=== PATIENT | female | born 1955 | race Caucasian/White ===

== ENCOUNTER → 2017-06-19 | Outpatient (CLI) | payer OTHER ==
[2017-06-19 14:24] LABS: Appearance,Urine Clear (Clear); Bilirubin,Urine Negative (Negative); Glucose,Urine (UA) Negative (Negative); Ketones,Urine Negative (Negative); Leukocyte Esterase,Urine Moderate (Negative); Nitrite,Urine Negative (Negative); Particle Count 558; Protein,Urine Negative (Negative); Specific Gravity,Urine 1.006 (1.001-1.035); Squamous Epithelial Cell,Urine 1 /hpf (0-4); UA Billing (MACRO vs. MICRO) MICRO; Urobilinogen,Urine <2.0 mg/dL (<2.0); WBC,Urine 2 /hpf (0-5)
[2017-06-19 14:26] LABS: CH 31.2; CHCM 34.4; HCT 40.8 % (34.0-46.0); HDW 2.53; HGB 13.4 gm/dL (11.4-16.0); MCH 29.9 pg (25.0-35.0); MCHC 32.9 g/dL (31.0-37.0); MCV 91.1 fL (80.0-100.0); Mean Platelet Volume 6.8; RBC 4.48 m/uL (3.80-5.40); RDW 14.1 % (11.5-15.5); WBC 7.2 k/uL (3.8-10.6)
[2017-06-19 14:28] LABS: Partial Thromboplastin Time 23.1 sec (22.0-30.0); Prothrombin Time 9.9 sec (9.0-12.0)
[2017-06-19 14:39] LABS: Calcium 9.5 mg/dL (8.4-10.2); Potassium 4.2 mmol/L (3.5-5.1); Total Bilirubin 0.5 mg/dL (0.2-1.3); Total Protein 7.4 g/dL (6.3-8.2)
== END | disposition home or self-care (01) ==
LOC: LABWHC1 13:28
PROVIDERS: ATTEND Orthopaedic Surgery
DX: Z01.812 Encounter for preprocedural laboratory examination (principal)
CPT/HCPCS: 36415; 80053; 81001; 85027; 85610; 85730; 87070

== ENCOUNTER → 2017-06-27 | Outpatient (CLI) | payer OTHER ==
--- NOTE | 2017-06-27 16:48 | MR ---
EXAMINATION TYPE: MR brain and iac wo/w con DATE OF EXAM: 06/27/2017 COMPARISON: NONE HISTORY: Rt hearing loss, Dizzy CONTRAST: Performed utilizing 8 mL intravenous Gadavist gadolinium contrast. TECHNIQUE: Multiplanar, multiecho imaging on a 3.0 Anastasiya magnet is performed through the brain. Atte ntion is paid to the internal auditory canals with thin section imaging. Postcontrast imaging is per formed through the internal auditory canals. FINDINGS:Craniovertebral junction is normal. The pituitary is normal. Diffusion-weighted imaging is performed. No suspicious hyperintensity is present to suggest an acute intracranial infarct or acute ischemic area. Signal within the brain appears within normal limits. No abnormal enhancement is evident following co ntrast administration. [place]-white matter differentiation is preserved.. Thin section imaging is performed through the internal auditory canals and cerebellar pontine angles. No cerebellar pontine angle masses are evident. The internal auditory canals appear normal without expansion or erosion. Postcontrast imaging was performed. No suspicious enhancement is evident within the internal audito ry canals or the included portions of the brain. Some mucosal thickening is through the ethmoid air cells. Mastoid air cells are clear. Remaining para nasal sinuses are clear. IMPRESSIONS: 1. Normal internal auditory canals. 2. 3 and postcontrast MRI brain appears within normal limits. 3. Mild mucosal thickening within ethmoid air cells.
== END | disposition home or self-care (01) ==
LOC: RADMRIMAIN 11:45
PROVIDERS: ATTEND Otolaryngology
DX: R42 Dizziness and giddiness (principal)
CPT/HCPCS: 70553; A9581

== ENCOUNTER → 2017-09-02 | Outpatient (CLI) | payer OTHER ==
[2017-09-02 15:54] LABS: CH 29.1; CHCM 32.3; HCT 42.2 % (34.0-46.0); HDW 2.73; HGB 13.5 gm/dL (11.4-16.0); MCHC 31.9 g/dL (31.0-37.0); MCV 90.7 fL (80.0-100.0); RBC 4.65 m/uL (3.80-5.40); RDW 14.8 % (11.5-15.5); WBC 9.3 k/uL (3.8-10.6)
[2017-09-02 15:58] LABS: Appearance,Urine Clear (Clear); Bilirubin,Urine Negative (Negative); Glucose,Urine (UA) Negative (Negative); Ketones,Urine Negative (Negative); Leukocyte Esterase,Urine Moderate (Negative); Mucus,Urine Rare /hpf; Nitrite,Urine Negative (Negative); PH, Urine 5.5 (5.0-8.0); Particle Count 3530; Protein,Urine Trace (Negative); RBC,Urine 1 /hpf (0-5); Specific Gravity,Urine 1.022 (1.001-1.035); Squamous Epithelial Cell,Urine 2 /hpf (0-4); UA Billing (MACRO vs. MICRO) MICRO; WBC,Urine 15 /hpf (0-5)
[2017-09-02 16:02] LABS: Partial Thromboplastin Time 24.3 sec (22.0-30.0); Prothrombin Time 10.3 sec (9.0-12.0)
[2017-09-02 16:05] LABS: Calcium 10.3 mg/dL (8.4-10.2); Potassium 3.8 mmol/L (3.5-5.1); Total Bilirubin 0.4 mg/dL (0.2-1.3); Total Protein 8.3 g/dL (6.3-8.2)
== END | disposition home or self-care (01) ==
LOC: LABPAT 15:17
PROVIDERS: ATTEND Orthopaedic Surgery
DX: Z01.812 Encounter for preprocedural laboratory examination (principal); M17.12 Unilateral primary osteoarthritis, left knee
CPT/HCPCS: 36415; 80053; 81001; 85027; 85610; 85730; 87070

== ENCOUNTER 2020-06-19 06:11 | Day surgery (SDC) | payer BC ==
[2020-06-15 14:38] VITALS: BMI 30.9
--- NOTE | 2020-06-18 20:10 | P.HPOB ---
History of Present Illness H&P Date: 06/18/20 Chief Complaint: Endometrial thickening This is a 64 y.o. female, 3, para 3, who presents for dilatation and curettage with hysteroscopy due to endometrial thickening on pelvic US. Her pelvic ultrasound was performed for pelvic pain in the right lower quadrant that wraps around from her back. Ultrasound showed uterus measuring 7.3 x 3.3 x 2.1 cm, with an endometrial thickness of 11 mm and a cystic area within the endometrium measuring 7 x 6 mm. Her R. ovary was not visualized and L.ovary appeared normal. She denies any postmenopausal bleeding. OB Hx: . History of 3 vaginal deliveries. 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 Review of Systems Constitutional: Reports weight gain, Denies chills, Denies fever Eyes: bilateral blurred vision (occ) Ears, nose, mouth and throat: Reports vertigo Cardiovascular: Denies chest pain, Denies shortness of breath Respiratory: Reports cough (occ) Gastrointestinal: Reports abdominal pain (RLQ into back), Reports belching, Reports bloating Genitourinary: Reports stress incontinence (occ) Menstruation: Reports postmenopausal Musculoskeletal: Reports low back pain, Reports myalgias Integumentary: Reports rash Neurological: Reports headaches, Reports memory loss, Reports numbness Psychiatric: Reports anxiety, Reports change in libido, Reports depression, Reports difficulty concentrating, Reports insomnia, Reports irritability Endocrine: Reports fatigue Hematologic/Lymphatic: Denies easy bruising Past Medical History Past Medical History: Hearing Disorder / Deafness, Hyperlipidemia, Hypertension, Osteoarthritis (OA), Thyroid Disorder Additional Past Medical History / Comment(s): Dizziness problems on occasion, hearing problems in right ear, hx " 4 regurgitative heart valves. History of Any Multi-Drug Resistant Organisms: MRSA Date of last positivie culture/infection: 2011 MDRO Source:: FELICIANO LEGS Past Surgical History: Joint Replacement, Orthopedic Surgery Additional Past Surgical History / Comment(s): Pain injections in left shoulder, bilateral knee arthroscopies, bilateral knee replacements. Past Anesthesia/Blood Transfusion Reactions: No Reported Reaction Past Psychological History: Anxiety Smoking Status: Never smoker Past Alcohol Use History: Occasional Past Drug Use History: None Reported - Past Family History Father Family Medical History: Cancer Additional Family Medical History / Comment(s): LUNG Cancer. Brother(s) Family Medical History: Myocardial Infarction (MO) Additional Family Medical History / Comment(s): OF MO AT AGE 52. Medications and Allergies Home Medications Medication Instructions Recorded Confirmed Type ALPRAZolam [Xanax] 0.5 mg PO HS 05/10/15 06/19/20 History Levothyroxine Sodium [Synthroid] 75 mcg PO QAM 05/10/15 06/19/20 History Losartan Potassium [Cozaar] 50 mg PO QAM 05/10/15 06/19/20 History Simvastatin [Zocor] 40 mg PO HS 05/10/15 06/19/20 History Allergies Allergy/AdvReac Type Severity Reaction Status Date / Time No Known Allergies Allergy Verified 06/19/20 06:48 Exam Osteopathic Statement: *. No significant issues noted on an osteopathic structural exam other than those noted in the History and Physical/Consult. HEENT: within normal limits Heart: regular rate and rhythm Lungs: clear to auscultation bilaterally Pelvic: uterus mildly tender, mid-position, no adnexal masses. Left adnexa mildly tender. Extremities: neg. Brenda's Assessment and Plan (1) Endometrial thickening on ultrasound Current Visit: No Status: Acute Code(s): R93.89 - ABNORMAL FINDINGS ON DX IMAGING OF OTH BODY STRUCTURES SNOMED Code(s): 023935716 Plan: Proceed with dilatation and curettage with hysteroscopy. I have discussed the risks, benefits, and alternative therapies for the above- mentioned procedure and for both sedation/anesthesia as well as necessary blood products administration, if indicated, as they pertain to this patient. The patient has indicated her understanding and acceptance of the risks and pro cedures discussed.
[~2020-06-19 06:11] MED LIST: DEXAMETHASONE SOD PHOSPHATE 10 MG/ML 1 ML VIAL IV ONE; LACTATED RINGERS 1,000 ML IV SCH; ONDANSETRON 4 MG/2 ML VIAL IVP ONE; Pre Op ABX Message 1 EACH MISC MISCELLANE ONE
[2020-06-19] MEDS ORDERED: LIDOCAINE 1% (10MG/ML) FOR IV START IV ONE (06:52)
[2020-06-19] MEDS ORDERED: PROPOFOL 10 MG/ML 20 ML VIAL IV ONE (07:35)
[2020-06-19] MEDS ORDERED: KETOROLAC 15 MG/ML 1 ML VIAL ONE (07:35)
[2020-06-19] MEDS ORDERED: LIDOCAINE 1% INJ 10MG/ML (20 ML MDV) ONE (07:35)
[2020-06-19] MEDS ORDERED: fentaNYL (PF) 50 MCG/ML 2 ML AMP ONE (07:35)
[2020-06-19] MEDS ORDERED: MIDAZOLAM 2 MG/2 ML VIAL ONE (07:35)
--- NOTE | 2020-06-19 08:13 | P.OP ---
Date of Procedure: 06/19/20 Preoperative Diagnosis: Endometrial thickening on ultrasound Postoperative Diagnosis: Same Procedure(s) Performed: Dilation and curettage with hysteroscopy Anesthesia: MALA Surgeon: Kellee Chow Estimated Blood Loss (ml): 5 Pathology: other (Endometrial curettings) Condition: stable Disposition: same day Indications for Procedure: This is a 64 y.o. female, 3, para 3, who presents for dilatation and curettage with hysteroscopy due to endometrial thickening on pelvic US. Her pelvic ultrasound was performed for pelvic pain in the right lower quadrant that wraps around from her back. Ultrasound showed uterus measuring 7.3 x 3.3 x 2.1 cm, with an endometrial thickness of 11 mm and a cystic area within the endometrium measuring 7 x 6 mm. Her R. ovary was not visualized and L.ovary appeared normal. She denies any postmenopausal bleeding. Operative Findings: Uterus is mid to anteverted position, sounded to 7 cm. No adnexal masses are palpated. A very atrophic endometrial pattern is noted. There are 2 polyps, 1 rather large. Description of Procedure: The patient was taken to the operating room where she is placed in the dorsal lithotomy position. She is prepped and draped in the normal sterile fashion. Her bladder is drained with a catheter and then removed. Examination is performed under anesthesia. Uterus is found to be mid to anteverted position with no adnexal masses palpated. Next a weighted speculum was placed in the patient's vagina and a right angle retractor was used to visualize the cervix. Cervix was noted to be atrophic. The cervical os was gently dilated with a Andrade dilator and then the uterus is sounded to 7 cm. Cervix is gently dilated further until a hysteroscope could be passed. Hysteroscopy was performed using normal saline. The above noted findings are made and pictures are taken. Next the cervix is gently dilated further and then a polyp forceps was introduced. A very large endometrial polyp is easily removed. Next a medium-size sharp curettage was performed with very minimal further tissue. The specimen is removed from the field. Single-tooth tenaculum is removed and no active bleeding is noted. All instruments are removed from the vagina. All sponge counts are correct. The patient is then taken to recovery room in stable condition. The specimen is sent to pathology.
[2020-06-19 08:18] VITALS: TEMP 97
[2020-06-19] MEDS: HYDROmorphone 0.5 MG/0.5 ML SYRINGE IVP PRN ×2 (08:21→08:44)
[2020-06-19] MEDS ORDERED: LACTATED RINGERS 1,000 ML IV ONE (08:44)
[2020-06-19 09:42] VITALS: BP 144/72; PULSE 60; RESP 20
== END 2020-06-19 10:33 | disposition home or self-care (01) ==
LOC: OR 06:11
PROVIDERS: ATTEND Obstetrics & Gynecology
DX: N84.0 Polyp of corpus uteri (principal); R93.89 Abnormal findings on diagnostic imaging of other specified body structures; I10 Essential (primary) hypertension; F41.9 Anxiety disorder, unspecified; H91.90 Unspecified hearing loss, unspecified ear; E78.5 Hyperlipidemia, unspecified; M19.90 Unspecified osteoarthritis, unspecified site; E07.9 Disorder of thyroid, unspecified; Z86.14 Personal history of Methicillin resistant Staphylococcus aureus infection; Z96.653 Presence of artificial knee joint, bilateral; Z79.890 Hormone replacement therapy; Z79.899 Other long term (current) drug therapy; Z82.49 Family history of ischemic heart disease and other diseases of the circulatory system; Z80.1 Family history of malignant neoplasm of trachea, bronchus and lung; K21.9 Gastro-esophageal reflux disease without esophagitis
CPT/HCPCS: 88305; 58558; J2250; J1100; J2405; J2001; J3010; J1885; J2704; J1170

== ENCOUNTER → 2024-03-26 | Outpatient (CLI) | payer BC ==
--- NOTE | 2024-03-26 11:57 | US ---
EXAMINATION TYPE: US kidneys/renal and bladder DATE OF EXAM: 03/26/2024 COMPARISON: NONE CLINICAL INDICATION: Female, 68 years old with history of R94.4 ABNORMAL RESULTS OF KIDNEY FUNCTION S TUDIES; EXAM MEASUREMENTS: Right Kidney: 9.2 x 4.7 x 5.4 cm Left Kidney: 10.2 x 4.4 x 4.8 cm Right Kidney: No hydronephrosis or masses seen Left Kidney: No hydronephrosis or masses seen Bladder: wnl Bilateral Jets seen: right jet not seen, left jet seen IMPRESSION: 1. Mild renal atrophy. 2. No cortical mass, renal calculus or hydronephrosis.
== END | disposition home or self-care (01) ==
LOC: RADUSWWP 09:54
PROVIDERS: ATTEND Family Medicine
DX: R94.4 Abnormal results of kidney function studies (principal)
CPT/HCPCS: 76770

== ENCOUNTER → 2024-07-09 | Outpatient (CLI) | payer BC ==
[2024-07-09 20:21] LABS: Basophils # (A) 0.07 X 10*3/uL (0.00-0.10); Basophils % (A) 0.8 %; Eosinophils # (A) 0.23 X 10*3/uL (0.04-0.35); Eosinophils % (A) 2.8 %; HCT 42.3 % (37.2-46.3); HGB 13.8 g/dL (12.0-15.0); Lymphocytes # (A) 2.11 X 10*3/uL (0.90-5.00); Lymphocytes % (A) 25.3 %; MCH 30.8 pg (27.0-32.0); MCHC 32.6 g/dL (32.0-37.0); MCV 94.4 FL (80.0-97.0); Mean Platelet Volume 9.3 FL (9.5-12.2); Monocytes % (A) 10.8 %; NRBC Per 100 WBC 0 X 10*3/uL (0.00-0.01); Neutrophils # (A) 5.01 X 10*3/uL (1.80-7.70); Neutrophils % (A) 60.1 %; Platelet Count 466 X 10*3/uL (140-440); RBC 4.48 X 10*6/uL (4.10-5.20); RDW 13.8 % (11.5-14.5); WBC 8.34 X 10*3/uL (4.50-10.00)
[2024-07-09 20:31] LABS: ALT 25 U/L (8-44); AST 26 U/L (13-35); Albumin 4.2 g/dL (3.8-4.9); Albumin/Globulin Ratio 1.14 Ratio (1.60-3.17); Alkaline Phosphatase 62 U/L (41-126); BUN/Creat Ratio 13.58 Ratio (12.00-20.00); Blood Urea Nitrogen 16.3 mg/dL (9.0-27.0); Calcium 9.4 mg/dL (8.7-10.3); Carbon Dioxide 27.1 mmol/L (21.6-31.8); Chloride 101 mmol/L (96-109); Globulin 3.7 g/dL (1.6-3.3); Glucose 87 mg/dL (70-110); Magnesium 2.3 mg/dL (1.5-2.4); Phosphorus 3.7 mg/dL (2.4-5.1); Potassium 4.3 mmol/L (3.5-5.5); Sodium 140 mmol/L (135-145); Total Bilirubin 0.4 mg/dL (0.3-1.2); Total Protein 7.9 g/dL (6.2-8.2)
[2024-07-09 22:31] LABS: Appearance,Urine Clear (Clear); Bilirubin,Urine Negative (Negative); Blood,Urine Negative (Negative); Color,Urine Yellow (Yellow); Ketones,Urine Negative (Negative); Nitrite,Urine Negative (Negative); PH, Urine 5.5; Specific Gravity,Urine 1.014 (1.001-1.030); Urobilinogen,Urine 0.2
[2024-07-09 22:38] LABS: Bacteria,Urine None Seen (None Seen)
== END | disposition home or self-care (01) ==
LOC: LABWHC1 13:04
PROVIDERS: ATTEND Internal Medicine Nephrology
DX: N28.9 Disorder of kidney and ureter, unspecified (principal)
CPT/HCPCS: 36415; 80053; 81001; 83735; 84100; 85025

== ENCOUNTER → 2024-12-20 | Outpatient (CLI) | payer BC ==
[2024-12-20 15:06] LABS: Basophils # (A) 0.11 X 10*3/uL (0.00-0.10); Basophils % (A) 1.4 %; Eosinophils # (A) 0.27 X 10*3/uL (0.04-0.35); Eosinophils % (A) 3.5 %; HCT 44.2 % (37.2-46.3); HGB 14.4 g/dL (12.0-15.0); Lymphocytes # (A) 2.21 X 10*3/uL (0.90-5.00); MCH 29.6 pg (27.0-32.0); MCHC 32.6 g/dL (32.0-37.0); MCV 90.8 FL (80.0-97.0); Mean Platelet Volume 9.4 FL (9.5-12.2); Monocytes # (A) 0.74 X 10*3/uL (0.20-1.00); Monocytes % (A) 9.7 %; NRBC Per 100 WBC 0 X 10*3/uL (0.00-0.01); Neutrophils # (A) 4.27 X 10*3/uL (1.80-7.70); Neutrophils % (A) 56.1 %; Platelet Count 416 X 10*3/uL (140-440); RBC 4.87 X 10*6/uL (4.10-5.20); RDW 13.4 % (11.5-14.5); WBC 7.62 X 10*3/uL (4.50-10.00)
[2024-12-20 15:29] LABS: Appearance,Urine Clear (Clear); Bilirubin,Urine Negative (Negative); Blood,Urine Negative (Negative); Color,Urine Yellow (Yellow); Ketones,Urine Negative (Negative); Nitrite,Urine Negative (Negative); Specific Gravity,Urine 1.015 (1.001-1.030); Urobilinogen,Urine 0.2 E.U./DL
[2024-12-20 15:36] LABS: % Iron Saturation 21.65 (12.00-45.00); Albumin 4.4 g/dL (3.8-4.9); BUN/Creat Ratio 15.23 Ratio (12.00-20.00); Bacteria,Urine None Seen (None Seen); Blood Urea Nitrogen 19.8 mg/dL (9.0-27.0); Carbon Dioxide 24.9 mmol/L (21.6-31.8); Chloride 101 mmol/L (96-109); Glucose 89 mg/dL (70-110); Iron 84 UG/DL (50-170); Potassium 4.4 mmol/L (3.5-5.5); Sodium 141 mmol/L (135-145); Total Iron Binding Capacity 388 UG/DL (228-460)
[2024-12-20 18:51] LABS: Microalbumin Creatinine Ratio <17 mg/g Cr (0-30)
== END | disposition home or self-care (01) ==
LOC: LABWHC1 11:37
PROVIDERS: ATTEND Internal Medicine Nephrology
DX: N18.31 Chronic kidney disease, stage 3a (principal); D63.1 Anemia in chronic kidney disease; E55.9 Vitamin D deficiency, unspecified; N39.0 Urinary tract infection, site not specified; R80.9 Proteinuria, unspecified
CPT/HCPCS: 36415; 80048; 81001; 82040; 82043; 82306; 82570; 82728; 83540; 83550; 85025